=== PATIENT | male | born 1980 | race Caucasian/White ===

== ENCOUNTER 2017-12-08 11:24 | Emergency (ER) | payer OTHER ==
[~2017-12-08] VITALS: Ht 175.3 cm; Wt 70.8 kg
[~2017-12-08 11:24] MED LIST: BUPR8SUB19 SL; CTP/1 PO; IBUP-1451 PO; SUMA50TA15 PO; TRAZ-162 PO
[2017-12-08 11:38] VITALS: TEMP 36.4; Ht 175.3 cm; Wt 70.8 kg
[2017-12-08] MEDS ORDERED: KETOROLAC TROMETHAMINE 60 MG/2 ML VIAL IM STA (12:04)
[2017-12-08] MEDS ORDERED: OXYCODONE HCL IR 5 MG TAB (IMMEDIATE RELEASE) PO STA (12:04)
[2017-12-08] MEDS ORDERED: OXYC-90 PO (13:02)
[2017-12-08] MEDS ORDERED: AMX500 PO (13:02)
--- NOTE | 2017-12-08 13:03 | EMERGENCY ROOM VISIT NOTE ---
ED Visit Note First contact with patient: 11:41 CHIEF COMPLAINT: "Mouth pain, migraine". HISTORY OF PRESENT ILLNESS: This 37-year-old male patient presented to the emergency department via private vehicle accompanied by father with a progressive toothache for past day. The patient believes it is coming from right posterior inferior tooth #30. The pain is now steady and severe and radiates to the face and right side of the head. The patient did a dentist appointment set up for 2 PM today. They rate their pain a 10/10 and the aspirin they have been taking has not relieved the pain. Denies fever. The patient denies any discharge from the mouth. He also notes that he feels as though he is getting a migraine/pain on the side of his head. REVIEW OF SYSTEMS: A 6 system review of systems was completed with positives and pertinent negatives listed in the HPI. ALLERGIES: Codeine/tramadol MEDICATIONS: As noted below PMH: Migraines SOCIAL HISTORY: Patient lives locally PHYSICAL EXAM: Vitals are noted on the nurse's note and reviewed by myself. Vital signs stable. Temperature 36.4C orally. GENERAL: 37-year-old male, in no acute distress, nondiaphoretic, well-developed well-nourished. Mouth: The right posterior inferior tooth #30 is very carious and the gum is swollen and tender around it, without any discharge or signs of an abscess. The remainder of the pharynx and tonsils are without erythema, edema, or exudate. The airway is patent. There is no true facial swelling, cervical or submandibular lymphadenopathy. The patient appears uncomfortable and in pain. The patient has overall fair dental hygiene. No evidence of meningitis or encephalitis. EARS: External auditory canals clear, tympanic membranes pearly knight without erythema or effusion bilaterally. ED COURSE: Patient was seen and evaluated as above. Review was performed of nursing notes and vital signs. After obtaining a thorough history and physical examination the above work up was performed. He presents to us today with right posterior inferior dental pain. No signs of abscess. No signs of Speedy angina. No meningitis or encephalitis signs. I believe the dental pain is coming from the tooth in poor repair. He notes that he did have a dental appointment today but missed this came here instead noting that the pain became severe. He notes that he has a history of migraines this when his not nearly as severe as normal. He believes it is all coming from the tooth. He is nontoxic in appearance. Benefit versus risk of obtaining lumbar puncture was discussed. Patient declined. I do not believe meningitis or encephalitis. He will be given a short course of oxycodone as he notes he is using over-the- counter pain medication without relief. He will be given amoxicillin in the event of any infection. The patient was educated upon management, educated upon todays findings/results, educated upon symptoms in which to return, had questions answered prior to discharge, and was discharged home in good condition. While here he was given Toradol and oxycodone with relief of pain. No red flags in the [place] drug monitoring system. Benefit versus risk of initiating narcotic medication discussed. In the evaluation and treatment of this patient, the following differential diagnoses were considered: Periapical Abscess, Osteonecrosis of the Jaw, Dental Fracture, Dental Caries, Speedy's Angina, Vincent's Angina, Facial Cellulitis. Current/Historical Medications Scheduled Amoxicillin (Amoxicillin), 500 MG PO TID Scheduled PRN Oxycodone Ir (Roxicodone Ir), 1 TAB PO Q4H PRN for Pain Allergies Coded Allergies: Codeine (Unverified Allergy, Mild, rash, 12/11/12) Tramadol (Unverified Allergy, Mild, rash, 12/11/12) Vital Signs Date Time Temp Pulse Resp B/P (MAP) Pulse Ox O2 Delivery O2 Flow Rate FiO2 12/08/17 13:17 82 18 109/71 99 12/08/17 11:38 36.4 88 20 126/87 97 Room Air Medications Administered Medications (Trade) Dose Ordered Sig/Brenda Route Start Time Stop Time Status Last Admin Dose Admin Ketorolac Tromethamine (Toradol Inj) 60 mg NOW STAT IM 12/08/17 12:04 12/08/17 12:05 DC 12/08/17 12:15 60 MG Oxycodone HCl (Roxicodone Immediate Rel Tab) 5 mg NOW STAT PO 12/08/17 12:04 12/08/17 12:05 DC 12/08/17 12:16 5 MG Departure Information Impression Primary Impression: Pain, dental Dispostion Home / Self-Care Condition GOOD Prescriptions Oxycodone Ir (Roxicodone Ir) 5 Mg Tab 1 TAB PO Q4H Y for Pain, #15 TAB For Initial Treatment Prov: Mauricio Artis PA-C 12/08/17 Amoxicillin (Amoxicillin) 500 Mg Cap 500 MG PO TID for 10 Days, #30 TABS Prov: Mauricio Artis PA-C 12/08/17 Referrals No Doctor, Assigned (PCP) Patient Instructions My [facility] Additional Instructions You have been treated in the Emergency Department for Dental Pain. You have received pain medicine in the emergency department which impairs your ability to operate a vehicle. It is illegal for you to drive after receiving these medicines. You have been prescribed Oxy IR to be used for pain control. This is a narcotic medication. You cannot drive or consume alcohol while on this medicine. This medicine should only be used for pain that cannot be controlled with over-the- counter pain medicines. You were prescribed Amoxicillin to be taken every 8 hours. This is an antibiotic. All antibiotics have the potential to cause diarrhea. Stop this medication and contact a medical provider if you were to develop any significant adverse side effects including: wheezing, shortness of breath, passing out, vomiting, or a diffuse rash. Always take antibiotics as directed and COMPLETE the ENTIRE course regardless of the improvement of your symptoms. For pain control, you can use the following [id number] medicines (if >12 yo): - Regular strength (325mg/tab) Tylenol (acetaminophen) 2 tabs every 4-6 hours as needed. Do not exceed 12 tablets in a 24 hour period. Avoid taking more than 3 grams (3000 mg) of Tylenol per day. This includes any other sources of acetaminophen you may take on a regular basis. - Regular strength (200 mg/tab) Advil (ibuprofen) 1-2 tabs every 4-6 hours as needed. Do not exceed a dose of 3200 mg per day. Refrain from smoking cigarettes or using chewing tobacco until you have been evaluated by your dentist. Keeping beverages lukewarm and consuming soft foods can decrease your pain. Warm compresses over the affected area may offer some relief. You MUST seek evaluation of your dental pain by a dentist following your visit to the Emergency Department. The Emergency Department is not capable of treating dental issues long-term. You should call your dentist as soon as possible to make an appointment for evaluation of your dental pain. Return to the emergency department if you develop the following symptoms despite treatment course outlined above: fever, intractable pain, increased redness, swelling, or purulent discharge. Below is one of the local dentists whom you may call to schedule follow up: Dr. Ciaran Alejandro, DMD [phone] [address] [place], [place]
[2017-12-08 13:17] VITALS: BP 109/71; PULSE 82; O2SAT 99
== END 2017-12-08 13:12 | disposition home or self-care (01) ==
LOC: C.EDB 11:25 → C.EDD 13:12
DX: K08.89 Other specified disorders of teeth and supporting structures (principal)